=== PATIENT | male | born 1970 | race Hispanic/Latino ===

== ENCOUNTER 2018-01-04 13:53 | Emergency (ER) | payer MEDICAID ==
[2018-01-04 14:15] VITALS: RESP 18; TEMP 98.6
[2018-01-04] MEDS ORDERED: Vancomycin 1gm in NS 250ml 1 GM/250 ML BAG IVPB STA (14:36)
--- NOTE | 2018-01-04 15:21 | ED PDOC ---
Arrival/HPI - General Chief Complaint: Bite Time Seen by Provider: 01/04/18 14:35 Historian: Patient - History of Present Illness Narrative History of Present Illness (Text): 01/04/18 15:05 47yo male with no pmhx who present with complaint of worsening left forearm wound from a cat bite. Patient notes that he was bitten by a Cat on and was seen at Urgent care on Wednesday. He notes that he was placed on Doxycycline which he started same . He went back to a different Urgent care today because of worsening pain and redness today and was referred to the ED for infection. He denies fever, chills, nausea, vomiting, focal weakness, abdominal pain, any other complaint. Past Medical History - Provider Review Nursing Documentation Reviewed: Yes - Infectious Disease Hx of Infectious Diseases: None - Psychiatric Hx Anxiety: Yes Hx Depression: Yes Hx Substance Use: No Family/Social History - Physician Review Nursing Documentation Reviewed: Yes Family/Social History: Unknown Family HX Smoking Status: Never Smoked Hx Alcohol Use: Yes Frequency of alcohol use: Daily Hx Substance Use: No Allergies/Home Meds Allergies/Adverse Reactions: Allergies Penicillins Allergy (Verified 01/04/18 14:17) ANAPHYLAXIS Home Medications: Home Meds Medication Instructions Recorded Confirmed Clonazepam [Klonopin] 2 mg PO PRN PRN 01/04/18 01/04/18 Doxycycline Monohydrate [Mondoxyne 100 mg PO BID 01/04/18 01/04/18 Nl] Escitalopram [Lexapro] 20 mg PO DAILY 01/04/18 01/04/18 Review of Systems - Physician Review All systems were reviewed & negative as marked: Yes - Review of Systems Constitutional: Normal Eyes: Normal ENT: Normal Respiratory: Normal Cardiovascular: Normal Gastrointestinal: Normal Genitourinary Male: Normal Musculoskeletal: Normal Skin: Cellulitis (Left forearm) Neurological: Normal Endocrine: Normal Hemo/Lymphatic: Normal Psychiatric: Normal Physical Exam Vital Signs Reviewed: Yes Vital Signs Temp Pulse Resp BP Pulse Ox 01/04/18 17:43 75 18 114/75 99 01/04/18 16:32 79 18 112/71 99 01/04/18 14:12 98.6 F 86 18 114/76 97 Temperature: Afebrile Blood Pressure: Normal Pulse: Regular Respiratory Rate: Normal Appearance: Positive for: Well-Appearing, Non-Toxic, Comfortable Pain Distress: None Mental Status: Positive for: Alert and Oriented X 3 - Systems Exam Head: Present: Atraumatic, Normocephalic Pupils: Present: PERRL Extroacular Muscles: Present: EOMI Conjunctiva: Present: Normal Mouth: Present: Moist Mucous Membranes Neck: Present: Normal Range of Motion Respiratory/Chest: Present: Clear to Auscultation, Good Air Exchange. No: Respiratory Distress, Accessory Muscle Use Cardiovascular: Present: Regular Rate and Rhythm, Normal S1, S2. No: Murmurs Abdomen: No: Tenderness, Distention, Peritoneal Signs Back: Present: Normal Inspection Upper Extremity: Present: Normal Inspection. No: Cyanosis, Edema Lower Extremity: Present: Normal Inspection. No: Edema Neurological: Present: GCS=15, CN II-XII Intact, Speech Normal Skin: Present: Warm, Dry, Normal Color, Erythematous, Induration (3.0 x 3.0cm area of induration to left distal dorsal forearm with surrounding erythema and erytehamtous streak going up to the proximal forearm. Warmth to touch. Tender to palpation.). No: Rashes Psychiatric: Present: Alert, Oriented x 3, Normal Insight, Normal Concentration Medical Decision Making ED Course and Treatment: 01/04/18 16:57 47yo male present for worsening right forearm infection. Induration, surrounding erythema, erythematous streak with warmness was noted on exam. Lab was negative with no leukocytosis and pt was afebrile. He however failed outp abx and needs admission for IV abx. Plan was DW the pt and he agreed. CXR NAD EKG NSR @68bpm Case was DW Dr. Esquivel and he accepted pt for admission 01/04/18 17:49 - Lab Interpretations Lab Results: 01/04/18 15:00 01/04/18 16:00 Lab Results 01/04/18 16:00: Sodium 145, Potassium 4.1, Chloride 105, Carbon Dioxide 27, Anion Gap 17, BUN 14, Creatinine 0.8, Est GFR ( Amer) > 60, Est GFR (Non- Af Amer) > 60, Random Glucose 99, Calcium 9.7, Total Bilirubin 0.7, AST 28, ALT 38, Alkaline Phosphatase 55, Total Protein 7.5, Albumin 4.4, Globulin 3.1, Albumin/Globulin Ratio 1.4 01/04/18 15:00: PT 12.2, INR 1.07, APTT 27.4 01/04/18 15:00: WBC 6.3, RBC 4.76, Hgb 15.5, Hct 42.6, MCV 89.5, MCH 32.6, MCHC 36.4, RDW 12.8, Plt Count 176, MPV 11.0, Gran % 60.8, Lymph % (Auto) 29.5, [place] % (Auto) 5.5, Eos % (Auto) 3.3, Baso % (Auto) 0.9, Gran # 3.84, Lymph # (Auto) 1.9, [place] # (Auto) 0.4, Eos # (Auto) 0.2, Baso # (Auto) 0.06 - Medication Orders Current Medication Orders: Discontinued Medications Vancomycin HCl (Vancomycin 1gm) 1 gm in 250 mls @ 167 mls/hr IVPB STAT STA PRN Reason: Protocol Stop: 01/04/18 16:05 Last Admin: 01/04/18 15:59 Dose: 167 mls/hr eMAR Start Stop Document 01/04/18 15:59 SF (Rec: 01/04/18 16:00 SF [id number] Intravenous Solution Start Date 01/04/18 Start Time 15:59 End Date 01/04/18 End time 17:30 Total Infusion Time 91 Cefepime HCl (Maxipime 2gm) 2 gm in 100 mls @ 100 mls/hr IVPB STAT STA PRN Reason: Protocol Stop: 01/04/18 17:01 Disposition/Present on Arrival - Present on Arrival Any Indicators Present on Arrival: No History of DVT/PE: No History of Uncontrolled Diabetes: No Urinary Catheter: No History of Decub. Ulcer: No History Surgical Site Infection Following: None - Disposition Have Diagnosis and Disposition been Completed?: Yes Diagnosis: Cellulitis Disposition: HOSPITALIZED Disposition Time: 16:50 Patient Plan: Admission Patient Problems: Current Active Problems Problem Status Onset Cellulitis Acute Condition: STABLE
[2018-01-04] MEDS ORDERED: Cefepime IV 2 gm in NS 2 GM/100 ML BAG IVPB STA (16:02)
[2018-01-04 16:16] LABS: BASO # 0.06 K/mm3 (0.0-2.0); BASO % 0.9 % (0.0-3.0); EOS # 0.2 (0.0-0.7); EOS % 3.3 % (1.5-5.0); GRAN # 3.84 (1.4-6.5); GRAN % 60.8 % (50.0-68.0); HEMOGLOBIN 15.5 g/dL (14.0-18.0); LYMPH # 1.9 (1.2-3.4); LYMPH % 29.5 % (22.0-35.0); MEAN CELL VOLUME 89.5 fl (80.0-105.0); MEAN CORPUSCULAR HEMOGLOBIN 32.6 pg (25.0-35.0); MEAN CORPUSCULAR HGB CONC 36.4 g/dl (31.0-37.0); MONO # 0.4 (0.1-0.6); MONO % 5.5 % (1.0-6.0); RBC 4.76 10^6/uL (3.5-6.1); RED CELL DISTRIBUTION WIDTH 12.8 % (11.5-14.5); WHITE BLOOD COUNT 6.3 10^3/ul (4.5-11.0)
[2018-01-04 16:39] LABS: INR 1.07 (0.93-1.08); PARTIAL THROMBOPLASTIN TIME 27.4 Seconds (25.1-36.5); PROTHROMBIN TIME 12.2 SECONDS (9.4-12.5)
[2018-01-04 16:39] LABS: ALB/GLOB RATIO 1.4 (1.1-1.8); ALBUMIN 4.4 g/dL (3.0-4.8); ALT/SGPT 38 U/L (7-56); AST/SGOT 28 U/L (17-59); BLOOD UREA NITROGEN 14 mg/dL (7-21); CALCIUM 9.7 mg/dL (8.4-10.5); GFR AFRICAN-AMERICAN > 60; GFR NON-AFRICAN AMERICAN > 60
--- NOTE | 2018-01-04 18:32 | RAD ---
HISTORY: admission COMPARISON: No prior. FINDINGS: LUNGS: No active pulmonary disease. PLEURA: No significant pleural effusion identified, no pneumothorax apparent. CARDIOVASCULAR: No radiographic findings to suggest acute or significant cardiovascular disease. OSSEOUS STRUCTURES: No significant abnormalities. VISUALIZED UPPER ABDOMEN: Normal. OTHER FINDINGS: None. IMPRESSION: No active disease.
[2018-01-04 19:55] VITALS: BP 118/74; PULSE 72; O2SAT 100
--- NOTE | 2018-01-04 20:32 | CP.PCM.HP ---
Addendum entered and electronically signed by Imtiaz Toscano DO 01/04/18 20:44: Patient underwent US of left forearm in ED, Patient requested to sign out AMA. Patient denied antibiotic prescription. Patient instructed to return to nearest ED if experiencing any neurovascular and neuromuscular compromise of left upper extremity. Patient instructed to finish course of antibiotics and follow up with primary care physician. Original Note: <Imtiaz Toscano - Last Filed: 01/04/18 20:35> History of Present Illness - History of Present Illness History of Present Illness: CC: Left forearm cat bite HPI: Patient is a 47 year old male with no significant past medical history who presents to [facility] ED from urgent care center after evaluation for a catbite. Patient reports that he was bitten by a cat on of last week in the afternoon. He was inspecting a home when a house cat bit him on the left forearm. He reported going ot an urgent care center the next day and being prescribed antibiotics and having a culture taken of his wound. He denied any imaging or retained particles in the wound. He was prescribed doxycycline, given a tetanus shot and sent home. Patient noted that since starting antibiotics that his wound has become less red with some initial puncture wound healing. He then noticed that the wound started to develop some firmness around the initial puncture site and returned to the urgent care center. Patient was instructed to go to ED for further evaluation. Patient reports some very mild stiffness with extension of his wrist but denies any weakness, numbness, tingling sensation or discolartion of his hands. He indicates he is compliant with antibiotic regiment. 12 point ROS is benign other than mentioned in HPI. PMH: Denies PSH: Denies SOCHX: Tobacco: Former, current e-cigarette, ETOH: 1-2 drinks daily, beer, wine , bourbon, ID: THC use, last use 2 weeks prior ALL: PCN - Hives, unknown MEDS: Denies PMD: Unsure of name states he operated out of [place], recently moved to area within past month Present on Admission - Present on Admission Any Indicators Present on Admission: No Review of Systems - Review of Systems All systems: reviewed and no additional remarkable complaints except (as mentioned in HPI) Past Patient History - Infectious Disease Hx of Infectious Diseases: None - Past Social History Smoking Status: Former Smoker Alcohol: < 2 Drinks/Day Drugs: Cannabis - PSYCHIATRIC Hx Anxiety: Yes Hx Depression: Yes Hx Substance Use: No - SURGICAL HISTORY Hx Surgeries: No Meds Allergies/Adverse Reactions: Allergies Allergy/AdvReac Type Severity Reaction Status Date / Time Penicillins Allergy ANAPHYLAXIS Verified 01/04/18 14:17 Physical Exam - Constitutional Appears: Non-toxic, No Acute Distress - Head Exam Head Exam: ATRAUMATIC, NORMAL INSPECTION, NORMOCEPHALIC - Eye Exam Eye Exam: EOMI, PERRL - ENT Exam ENT Exam: Mucous Membranes Moist - Neck Exam Neck exam: Positive for: Full Rom. Negative for: Tenderness - Respiratory Exam Respiratory Exam: Clear to Auscultation Bilateral, NORMAL BREATHING PATTERN. absent: Rales, Rhonchi, Wheezes - Cardiovascular Exam Cardiovascular Exam: REGULAR RHYTHM, +S1, +S2 - GI/Abdominal Exam GI & Abdominal Exam: Normal Bowel Sounds, Soft. absent: Firm, Guarding, Organomegaly, Tenderness - Extremities Exam Extremities exam: Positive for: normal capillary refill, pedal pulses present. Negative for: calf tenderness Additional comments: Left anterior forearm with small 0.5 cm scarred puncture site, surrounded by erythema, not warm to touch, raised edges minimally, palpation around puncture site yields firm findings withing 2-3 cm radius - Neurological Exam Neurological exam: Alert, CN II-XII Intact, Normal Gait, Oriented x3, Reflexes Normal - Psychiatric Exam Psychiatric exam: Normal Affect, Normal Mood - Skin Skin Exam: Dry, Warm Results - Vital Signs Recent Vital Signs: Last Vital Signs Temp 98.6 F 01/04/18 14:12 Pulse 72 01/04/18 19:47 Resp 18 01/04/18 19:55 BP 118/74 01/04/18 19:47 Pulse Ox 100 01/04/18 19:47 - Labs Result Diagrams: 01/04/18 15:00 01/04/18 16:00 Assessment & Plan - Assessment and Plan (Free Text) Assessment: Cat bite on left anterior forearm - Patient found to have cat bite on - Treated with Doxycycline for 5 days - Patient given tetanus shot prior - Improvement of symptoms since abx started - Increased firmness of tissue surrounding puncture site - Order left forearm ultrasound for evaluation of abscess - IF abscess then General surgery consult - Continue doxycycline for patient due to PCN allergy DVT/GI ppx SCD, patient mobile Pepcid Case and plan discussed with attending - Date & Time Date: 01/04/18 Time: 20:41 <Himanshu More - Last Filed: 01/05/18 09:26> Results - Vital Signs Recent Vital Signs: Last Vital Signs Temp 98.6 F 01/04/18 14:12 Pulse 72 01/04/18 19:47 Resp 18 01/04/18 19:55 BP 118/74 01/04/18 19:47 Pulse Ox 100 01/04/18 19:47 - Labs Result Diagrams: 01/04/18 15:00 01/04/18 16:00 Labs: Laboratory Results - last 24 hr 01/04/18 01/04/18 01/04/18 15:00 15:00 16:00 WBC 6.3 RBC 4.76 Hgb 15.5 Hct 42.6 MCV 89.5 MCH 32.6 MCHC 36.4 RDW 12.8 Plt Count 176 MPV 11.0 Gran % 60.8 Lymph % (Auto) 29.5 [place] % (Auto) 5.5 Eos % (Auto) 3.3 Baso % (Auto) 0.9 Gran # 3.84 Lymph # (Auto) 1.9 [place] # (Auto) 0.4 Eos # (Auto) 0.2 Baso # (Auto) 0.06 PT 12.2 INR 1.07 APTT 27.4 Sodium 145 Potassium 4.1 Chloride 105 Carbon Dioxide 27 Anion Gap 17 BUN 14 Creatinine 0.8 Est GFR ( Amer) > 60 Est GFR (Non-Af Amer) > 60 Random Glucose 99 Calcium 9.7 Total Bilirubin 0.7 AST 28 ALT 38 Alkaline Phosphatase 55 Total Protein 7.5 Albumin 4.4 Globulin 3.1 Albumin/Globulin Ratio 1.4 Attending/Attestation - Attestation I have personally seen and examined this patient.: Yes I have fully participated in the care of the patient.: Yes I have reviewed all pertinent clinical information: Yes Notes (Text): 01/05/18 09:22 Medical record note made by the resident after discussion with my direction and input after the patient was personally seen and examined by me. I have reviewed the chart and agree that the record accurately reflects by personal performance of the history, physical exam, data review, and medical decision-making, in the course for the patient. I have also personally directed the plan of care. 47 yrs old male with H/O cat bite with cellulitis of left forearm , was treated with PO doxycycline, as per patient redness is improving.USG of forearm was ordered to rule out abscess.Patient decided to leave hospital before USG report.The issue was discussed with him in detail by medical records library professor.He is alert,awake and oriented and has signed against medical advice. 01/05/18 09:25
--- NOTE | 2018-01-04 20:49 | US ---
EXAM: US Left Upper Extremity Non-Vascular, Limited EXAM DATE/TIME: 01/04/2018 5:30 PM CLINICAL HISTORY: The patient age is 47 years old and is male; Pain; Other: Cat bite; Additional info: Left forearm eval S/P cat bite, eval for abscess Facility exam [facility] and description[facility] vascular [facility] TECHNIQUE: Real-time ultrasound scan of the left upper extremity with image documentation. COMPARISON: No relevant prior studies available. FINDINGS: Soft tissues: At the area of injury, soft tissue edematous changes are identified. In this area, there is a 2.1 x 1.2 x 2.2 cm area of hypodense soft tissue swelling or phlegmonous change. This may be inclusive of the musculature of the forearm. Vascular flow is identified in this region. Proximal to the area of injury, 2 small loculated cystic collections of fluid or abscesses are identified. These fluid collections measure 0.5 x 0.3 x 0.2 cm and 0.3 x 0.4 x 0.3 cm. IMPRESSION: 1. At the area of injury, soft tissue edematous changes are identified. In this area, there is a 2.1 x 1.2 x 2.2 cm area of hypodense soft tissue swelling or phlegmonous change. This may be inclusive of the musculature of the forearm. 2. Proximal to the area of injury, 2 small loculated cystic collections of fluid or abscesses are identified. 3. These findings can be further evaluated with MRI with/without contrast.
--- NOTE | 2018-01-05 08:13 | CARD ---
APPROVED REPORT EKG Measurement Heart [id number] MD [id number] <Conclusion> Normal sinus rhythm Normal ECG
== END 2018-01-04 19:55 | disposition left against medical advice (07) ==
LOC: ED 13:53 → ERH 16:51 → UNDOADMIN 16:51 → ERH 18:13
DX: L03.114 Cellulitis of left upper limb (principal); F41.9 Anxiety disorder, unspecified
CPT/HCPCS: 71045; 76881; 80053; 85025; 85610; 85730; 87040; 93005; 96365; 96366; 96367; 99285; J0692

== ENCOUNTER 2018-07-31 11:49 | Emergency (ER) | payer MEDICAID, OTHER ==
[2018-07-31 12:18] VITALS: BMI 26.0
[2018-07-31 12:22] VITALS: RESP 18
[2018-07-31] MEDS ORDERED: Sodium Chloride 0.9% 1,000 ML IV STA (12:45)
--- NOTE | 2018-07-31 12:51 | ED PDOC ---
Arrival/HPI - General Chief Complaint: Anxiety Historian: Patient - History of Present Illness Narrative History of Present Illness (Text): 07/31/18 12:46 47 y/o male, pmh including chronic anxiety, allergic to penicillin, c/o feeling anxious and out of klonipin 2mg po tid. Pt. was seen by a PCP Dr. Kareem Copeland, given klonipin 2mg po tid and 90 tablets with last prescription on 05/13/2018m, stated that he feels tremors/nausea with anxiety, can't sit still as he is anxious, out of medication, no chest pain or palpitation, no rash, no night sweat, no dizziness, no other medical or psychological complaints. Past Medical History - Provider Review Nursing Documentation Reviewed: Yes - Infectious Disease Hx of Infectious Diseases: None - Psychiatric Hx Anxiety: Yes Hx Depression: Yes Hx Substance Use: No Family/Social History - Physician Review Nursing Documentation Reviewed: Yes Family/Social History: Unknown Family HX Smoking Status: Former Smoker Hx Alcohol Use: Yes Hx Substance Use: No Allergies/Home Meds Allergies/Adverse Reactions: Allergies Penicillins Allergy (Verified 01/04/18 14:17) ANAPHYLAXIS Home Medications: Home Meds Medication Instructions Recorded Confirmed Clonazepam [Klonopin] 2 mg PO PRN PRN 01/04/18 01/04/18 Doxycycline Monohydrate [Mondoxyne 100 mg PO BID 01/04/18 01/04/18 Nl] Escitalopram [Lexapro] 20 mg PO DAILY 01/04/18 01/04/18 Review of Systems - Review of Systems Constitutional: absent: Fatigue, Fevers Eyes: absent: Vision Changes ENT: absent: Hearing Changes Respiratory: absent: SOB, Cough Cardiovascular: absent: Chest Pain Gastrointestinal: Nausea. absent: Abdominal Pain, Vomiting Genitourinary Male: absent: Dysuria, Frequency Musculoskeletal: absent: Arthralgias, Back Pain Skin: absent: Rash, Pruritis Neurological: absent: Headache, Dizziness Hemo/Lymphatic: absent: Adenopathy Psychiatric: Anxiety. absent: Depression, Suicidal Ideation Physical Exam Vital Signs Reviewed: Yes Vital Signs Temp Pulse Resp BP Pulse Ox 07/31/18 11:51 99.5 F 84 18 127/82 98 Temperature: Afebrile Blood Pressure: Normal Pulse: Regular Respiratory Rate: Normal Appearance: Positive for: Well-Appearing, Non-Toxic, Comfortable Pain Distress: None Mental Status: Positive for: Alert and Oriented X 3 - Systems Exam Head: Present: Atraumatic, Normocephalic Pupils: Present: PERRL Extroacular Muscles: Present: EOMI Conjunctiva: Present: Normal Mouth: Present: Moist Mucous Membranes Neck: Present: Normal Range of Motion Respiratory/Chest: Present: Clear to Auscultation, Good Air Exchange. No: Respiratory Distress, Accessory Muscle Use Cardiovascular: Present: Regular Rate and Rhythm, Normal S1, S2. No: Murmurs Abdomen: No: Tenderness, Distention, Peritoneal Signs, Rebound, Guarding Back: Present: Normal Inspection Upper Extremity: Present: Normal Inspection. No: Cyanosis, Edema Lower Extremity: Present: Normal Inspection. No: Edema Neurological: Present: GCS=15, CN II-XII Intact, Speech Normal Skin: Present: Warm, Dry, Normal Color. No: Rashes Psychiatric: Present: Alert, Oriented x 3, Normal Insight, Normal Concentration, Anxious Medical Decision Making ED Course and Treatment: 07/31/18 12:52 -labs -cxr -IVF/ativan -Observe and reassess 07/31/18 15:48 -Chest xray: ER wet read: no active disease -Labs show no acute findings -Mg within normal limit -Acetaminophen/Salicylate: within normal limit -UDS show +cannabinoid. -I checked [facility] and show 05/13/2018 with 30 days and 90 tablets. -Pt. evaluated and screen by the PES, recommend give 1 day supply and see his own pmd tomorrow for prescription refill as he is out of it. -Pt. is asymptomatic now, will give him 1 day of klonipin, he has no signs of withdrawal at this time. -Discharge home with the klonipin medication and avoid drinking with this medication, follow up with your own pmd for prescription refill tomorrow, return to the ER for any new or worsening signs or symptoms. - RAD Interpretation Radiology Orders: 07/31/18 12:45 CHEST PORTABLE [RAD] Stat Date of service: 07/31/2018 HISTORY: medical clearance COMPARISON: 01/04/2018. FINDINGS: LUNGS: No active pulmonary disease. PLEURA: No significant pleural effusion identified, no pneumothorax apparent. CARDIOVASCULAR: No atherosclerotic calcification present Normal. OSSEOUS STRUCTURES: No significant abnormalities. Healed right clavicular fracture. VISUALIZED UPPER ABDOMEN: Normal. OTHER FINDINGS: None. IMPRESSION: No active disease. No significant interval change compared to the prior examination(s). Zigzag Topstitcher: Radiologist - Medication Orders Current Medication Orders: Sodium Chloride (Sodium Chloride 0.9%) 1,000 mls @ 999 mls/hr IV .Q1H1M STA Stop: 07/31/18 13:45 Lorazepam (Ativan) 2 mg IVP ONCE ONE; Protocol Stop: 07/31/18 12:46 - PA / DIRECTOR OF DISTRICT OFFICE / Resident Statement MD/DO has reviewed & agrees with the documentation as recorded. Disposition/Present on Arrival - Present on Arrival Any Indicators Present on Arrival: No History of DVT/PE: No History of Uncontrolled Diabetes: No Urinary Catheter: No History of Decub. Ulcer: No History Surgical Site Infection Following: None - Disposition Have Diagnosis and Disposition been Completed?: Yes Diagnosis: Anxiety Disposition: HOME/ ROUTINE Disposition Time: 15:49 Patient Plan: Discharge Patient Problems: Current Active Problems Problem Status Onset Anxiety Acute Condition: IMPROVED Additional Instructions: -Discharge home with the klonipin medication and avoid drinking with this medication, follow up with your own pmd for prescription refill tomorrow, return to the ER for any new or worsening signs or symptoms. Prescriptions: Clonazepam [Klonopin] 2 mg PO TID #3 tablet Referrals: [facility] at [facility] [Outside] - Follow up with primary [facility] [Outside] - Follow up with primary Forms: [employer] ([place]), WORK NOTE
[2018-07-31 14:16] LABS: URINE BILIRUBIN NEGATIVE (NEGATIVE); URINE BLOOD NEGATIVE (NEGATIVE); URINE GLUCOSE (UA) NEGATIVE (NEGATIVE); URINE LEUKOCYTE ESTERASE NEGATIVE Leu/uL (NEGATIVE); URINE PROTEIN NEGATIVE mg/dL (<30 mg/dL); URINE UROBILINOGEN 0.2 E.U./dL (<1 E.U./dL)
[2018-07-31 14:19] LABS: URINE APPEARANCE CLEAR (CLEAR); URINE COLOR YELLOW (YELLOW)
[2018-07-31 14:20] LABS: BASO # 0.04 K/mm3 (0.0-2.0); BASO % 0.5 % (0.0-3.0); EOS % 0.5 % (1.5-5.0); GRAN # 6.54 (1.4-6.5); GRAN % 76.5 % (50.0-68.0); HEMOGLOBIN 16.6 g/dL (14.0-18.0); LYMPH # 1.7 (1.2-3.4); LYMPH % 19.3 % (22.0-35.0); MEAN CELL VOLUME 89.5 fl (80.0-105.0); MEAN CORPUSCULAR HEMOGLOBIN 32.4 pg (25.0-35.0); MEAN CORPUSCULAR HGB CONC 36.2 g/dl (31.0-37.0); MEAN PLATELET VOLUME 10.9 fl (7.0-11.0); MONO # 0.3 (0.1-0.6); MONO % 3.2 % (1.0-6.0); RBC 5.12 10^6/uL (3.5-6.1); RED CELL DISTRIBUTION WIDTH 12.8 % (11.5-14.5); WHITE BLOOD COUNT 8.5 10^3/uL (4.5-11.0)
--- NOTE | 2018-07-31 14:27 | RAD ---
Date of service: 07/31/2018 HISTORY: medical clearance COMPARISON: 01/04/2018. FINDINGS: LUNGS: No active pulmonary disease. PLEURA: No significant pleural effusion identified, no pneumothorax apparent. CARDIOVASCULAR: No atherosclerotic calcification present Normal. OSSEOUS STRUCTURES: No significant abnormalities. Healed right clavicular fracture. VISUALIZED UPPER ABDOMEN: Normal. OTHER FINDINGS: None. IMPRESSION: No active disease. No significant interval change compared to the prior examination(s). Concordant results with the preliminary interpretation rendered by the emergency department physician procedure.
[2018-07-31 14:30] LABS: ALB/GLOB RATIO 1.5 (1.1-1.8); ALBUMIN 4.8 g/dL (3.0-4.8); ALT/SGPT 40 U/L (7-56); AST/SGOT 30 U/L (17-59); BLOOD UREA NITROGEN 17 mg/dL (7-21); CALCIUM 10.2 mg/dL (8.4-10.5); GFR NON-AFRICAN AMERICAN > 60
[2018-07-31 14:31] LABS: ACETAMINOPHEN < 10.0 ug/ml (10.0-20.0); SALICYLATE < 1 mg/dL (2.0-20.0)
[2018-07-31 14:40] LABS: BARBITURATES, UR NEGATIVE (NEGATIVE); BENZODIAZEPINES, UR NEGATIVE (NEGATIVE); OPIATES, UR NEGATIVE (NEGATIVE); PHENCYCLIDINE, UR NEGATIVE (NEGATIVE)
[2018-07-31 16:00] VITALS: BP 110/72; PULSE 80; TEMP 97.4; O2SAT 100
== END 2018-07-31 16:00 | disposition home or self-care (01) ==
LOC: ED 11:49
DX: F41.9 Anxiety disorder, unspecified (principal); Z87.891 Personal history of nicotine dependence
CPT/HCPCS: 71045; 80053; 80324; 80329; 80345; 80346; 80349; 80353; 80358; 80361; 81003; 82550; 83735; 83992; 85025; 90791; 96361; 96374; 99282; J2060; J7030